=== PATIENT | male | born 1985 ===

== ENCOUNTER 2017-12-26 22:15 | Emergency (ER) | payer BC ==
[2017-12-26] MEDS ORDERED: Rocuronium 50 MG/5 ML Vial IV ONE (22:16)
[2017-12-26] MEDS ORDERED: Naloxone 2 MG/2 ML Syringe IVPUSH ONE ×3 (22:21→22:37)
[2017-12-26] MEDS: Sodium Chloride 0.9% 1,000 ML IV ONE ×2 (22:27→22:53)
[2017-12-26 22:45] LABS: O2 DELIVERY DEVICE ROOM AIR
[2017-12-26 22:47] LABS: CHLORIDE,CL 112 mmol/L (101-111); SODIUM,NA 143 mmol/L (135-145)
--- NOTE | 2017-12-26 23:10 | PCM.SN ---
- Free Text/Narrative Note: Intubation. Called per ER provider to intubate obtunded Pt. Pt with blood alcohol in 480's. Minimal response to painful stimuli. HR 90's, BP 160's / 90' s. RR 30's with SaO2 in the low 90's. Pt relaxed with 80 mg of anectine while cricoid pressure maintained. Glidescope used, copious clear secretions suctioned. 7.5 ETT passed through cords after 2nd attempt, BBS, pos fogging and Pos ETCO2 color change. Tube secured at 23 cm at lip. OG placed with approx 300 cc yellow colored liquids returned. C xray confirms placement. Pt given 40 mg of Zemuron. Vital signs remain unchenged. Procedure time 2240 to 2315
[2017-12-26] MEDS ORDERED: fentaNYL 100 MCG/2 ML SDV IVPUSH ONE (23:24)
[2017-12-26] MEDS ORDERED: Midazolam 1 MG/ML 2 ML SDV ONE (23:25)
[2017-12-26] MEDS ORDERED: Midazolam 1 MG/ML 2 ML SDV IVPUSH ONE (23:25)
[2017-12-26] MEDS ORDERED: fentaNYL 100 MCG/2 ML SDV ONE (23:27)
[2017-12-26 23:44] LABS: BASE EXCESS ARTERIAL -7 mmol/L ((-2)-(+3)); O2 SATURATION ARTERIAL 93 % (95-100); PCO2 ARTERIAL 48 mmHg (35-45); PO2 ARTERIAL 73 mmHg (70-100)
[2017-12-27] MEDS ORDERED: Midazolam 1 MG/ML 2 ML SDV IVPUSH ONE (00:08)
[2017-12-27] MEDS ORDERED: fentaNYL 100 MCG/2 ML SDV ONE (00:09)
[2017-12-27] MEDS ORDERED: Midazolam 1 MG/ML 2 ML SDV ONE (00:09)
[2017-12-27] MEDS ORDERED: Rocuronium 50 MG/5 ML Vial IVPUSH ONE (00:15)
[2017-12-27] MEDS ORDERED: MVI, Adult with Vitamin K 10 ML, Folic Acid 1 MG, Thiamine 100 MG in Lactated Ringers 1... IV ONE ×4 (00:30)
--- NOTE | 2017-12-27 01:23 | EDM.PDOC ---
ED HPI GENERAL MEDICAL PROBLEM - General Chief Complaint: Drug or Alcohol Abuse Stated Complaint: UNRESPONSIVE Time Seen by Provider: 12/26/17 22:22 Source of Information: Reports: EMS History Limitations: Reports: Altered Mental Status - History of Present Illness INITIAL COMMENTS - FREE TEXT/NARRATIVE: ED via [facility] unresponsive. Reported to have had 2 shots of whiskey served at bar then fell asleep at table, unable to arouse. Nasal airway per EMS. Spontaneous respirations. No signs of trauma. 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 - Related Data Allergies Allergy/AdvReac Type Severity Reaction Status Date / Time Unable to Assess Allergy Unverified 12/26/17 22:22 Home Meds: Home Meds . [Unable to Verify Home Med List] 12/26/17 [History] Social & Family History - Family History Family Medical History: Noncontributory - Tobacco Use Smoking Status *Q: Unknown Ever Smoked - Alcohol Use Date of Last Drink: 12/26/17 ED ROS GENERAL - Review of Systems Review Of Systems: ROS reveals no pertinent complaints other than HPI. - Physical Exam Exam: See Below Exam Limited By: Altered Mental Status General Appearance: Obtunded Eye Exam: Bilateral Eye: PERRL (sluggish 4) Ears: Normal External Exam Nose: Normal Inspection Throat/Mouth: Normal Inspection Head Exam: Atraumatic, Normocephalic Neck: Normal Inspection Respiratory/Chest: Other (shallow) Cardiovascular: Regular Rate, Rhythm GI/Abdominal: Normal Bowel Sounds (Male) Exam: Normal Inspection Neuro Exam (Abbreviated): Unresponsive (to painful stimuli), Other (flaccid, no posturing. ) Back Exam: Normal Inspection Extremities: Normal Inspection (no bruising) Skin Exam: Warm, Dry, Intact, Normal Color, Tattoo(s) Course - Vital Signs Last Recorded V/S: Last Vital Signs Temp 97.2 F 12/26/17 22:31 Pulse 93 12/26/17 22:31 Resp 25 H 12/26/17 22:31 BP 131/83 12/26/17 22:31 Pulse Ox 91 L 12/26/17 22:31 - Orders/Labs/Meds Labs: Laboratory Tests 12/26/17 12/26/17 12/26/17 Range/Units 22:15 22:15 22:18 WBC 9.1 (5.0-10.0) 10^3/uL RBC 5.26 (4.6-6.2) 10^6/uL Hgb 17.2 (14.0-18.0) g/dL Hct 50.5 (40.0-54.0) % MCV 96.0 (80-100) fL MCH 32.7 (27.0-34.0) pg MCHC 34.1 (33.0-35.0) g/dL Plt Count 211 (150-450) 10^3/uL Neut % (Auto) 42.1 L (42.2-75.2) % Lymph % (Auto) 47.4 (20.5-50.1) % [place] % (Auto) 7.3 (2-8) % Eos % (Auto) 2.6 (1.0-3.0) % Baso % (Auto) 0.6 (0.0-1.0) % ABG pH (7.35-7.45) ABG pCO2 (35-45) mmHg ABG pO2 (70-100) mmHg ABG HCO3 (22-26) mmol/L ABG O2 Saturation (95-100) % ABG Base Excess ((-2)-(+3)) mmol/L O2 Delivery Device Sodium 143 (135-145) mmol/L Potassium 3.8 (3.6-5.0) mmol/L Chloride 112 H (101-111) mmol/L Carbon Dioxide 19.0 L (21.0-31.0) mmol/L Anion Gap 15.8 BUN 12 (7-18) mg/dL Creatinine 0.9 (0.6-1.3) mg/dL Est Cr Clr Drug Dosing 110.10 mL/min Estimated GFR (MDRD) > 60 BUN/Creatinine Ratio 13.33 Glucose 112 H (74-105) mg/dL POC Glucose 99 (70-105) mg/dl Calcium 8.9 (8.4-10.2) mg/dl Total Bilirubin 0.4 (0.2-1.0) mg/dL AST 28 (10-42) IU/L ALT 19 (10-60) IU/L Alkaline Phosphatase 55 (42-121) IU/L Total Protein 7.5 (6.7-8.2) g/dl Albumin 4.4 (3.2-5.5) g/dl Globulin 3.1 Albumin/Globulin Ratio 1.42 Amylase 82 (28-100) U/L Lipase 30 (22-51) U/L Urine Color (YELLOW) Urine Appearance (CLEAR) Urine pH (5.0-9.0) Ur Specific [place] (1.005-1.030) Urine Protein (NEGATIVE) Urine Glucose (UA) (NEGATIVE) Urine Ketones (NEGATIVE) Urine Occult Blood (NEGATIVE) Urine Nitrite (NEGATIVE) Urine Bilirubin (NEGATIVE) Urine Urobilinogen (0.2-1.0) mg/dL Ur Leukocyte Esterase (NEGATIVE) Urine RBC /HPF Urine WBC (0-5/HPF) /HPF Ur Epithelial Cells /HPF Urine Bacteria (0-FEW/HPF) /HPF Urine Opiates Screen (NEGATIVE) Ur Oxycodone Screen (NEGATIVE) Urine Methadone Screen (NEGATIVE) Ur Barbiturates Screen (NEGATIVE) U Tricyclic Antidepress (NEGATIVE) Ur Phencyclidine Scrn (NEGATIVE) Ur Amphetamine Screen (NEGATIVE) U Methamphetamines Scrn (NEGATIVE) Urine MDMA Screen (NEGATIVE) U Benzodiazepines Scrn (NEGATIVE) Urine Cocaine Screen (NEGATIVE) U Marijuana (THC) Screen (NEGATIVE) Ethyl Alcohol 480 mg/dL 12/26/17 12/26/17 12/26/17 Range/Units 22:30 22:30 22:30 WBC (5.0-10.0) 10^3/uL RBC (4.6-6.2) 10^6/uL Hgb (14.0-18.0) g/dL Hct (40.0-54.0) % MCV (80-100) fL MCH (27.0-34.0) pg MCHC (33.0-35.0) g/dL Plt Count (150-450) 10^3/uL Neut % (Auto) (42.2-75.2) % Lymph % (Auto) (20.5-50.1) % [place] % (Auto) (2-8) % Eos % (Auto) (1.0-3.0) % Baso % (Auto) (0.0-1.0) % ABG pH 7.24 L (7.35-7.45) ABG pCO2 48 H (35-45) mmHg ABG pO2 73 (70-100) mmHg ABG HCO3 20.0 L (22-26) mmol/L ABG O2 Saturation 93 L (95-100) % ABG Base Excess -7 L ((-2)-(+3)) mmol/L O2 Delivery Device Room air Sodium (135-145) mmol/L Potassium (3.6-5.0) mmol/L Chloride (101-111) mmol/L Carbon Dioxide (21.0-31.0) mmol/L Anion Gap BUN (7-18) mg/dL Creatinine (0.6-1.3) mg/dL Est Cr Clr Drug Dosing mL/min Estimated GFR (MDRD) BUN/Creatinine Ratio Glucose (74-105) mg/dL POC Glucose (70-105) mg/dl Calcium (8.4-10.2) mg/dl Total Bilirubin (0.2-1.0) mg/dL AST (10-42) IU/L ALT (10-60) IU/L Alkaline Phosphatase (42-121) IU/L Total Protein (6.7-8.2) g/dl Albumin (3.2-5.5) g/dl Globulin Albumin/Globulin Ratio Amylase (28-100) U/L Lipase (22-51) U/L Urine Color Light yellow (YELLOW) Urine Appearance Slightly cloudy (CLEAR) Urine pH 5.0 (5.0-9.0) Ur Specific [place] <= 1.005 (1.005-1.030) Urine Protein Negative (NEGATIVE) Urine Glucose (UA) Negative (NEGATIVE) Urine Ketones Negative (NEGATIVE) Urine Occult Blood Negative (NEGATIVE) Urine Nitrite Negative (NEGATIVE) Urine Bilirubin Negative (NEGATIVE) Urine Urobilinogen 0.2 (0.2-1.0) mg/dL Ur Leukocyte Esterase Negative (NEGATIVE) Urine RBC Not seen /HPF Urine WBC Not seen (0-5/HPF) /HPF Ur Epithelial Cells Occasional /HPF Urine Bacteria Rare (0-FEW/HPF) /HPF Urine Opiates Screen Negative (NEGATIVE) Ur Oxycodone Screen Negative (NEGATIVE) Urine Methadone Screen Negative (NEGATIVE) Ur Barbiturates Screen Negative (NEGATIVE) U Tricyclic Antidepress Negative (NEGATIVE) Ur Phencyclidine Scrn Negative (NEGATIVE) Ur Amphetamine Screen Negative (NEGATIVE) U Methamphetamines Scrn Negative (NEGATIVE) Urine MDMA Screen Negative (NEGATIVE) U Benzodiazepines Scrn Negative (NEGATIVE) Urine Cocaine Screen Negative (NEGATIVE) U Marijuana (THC) Screen Negative (NEGATIVE) Ethyl Alcohol mg/dL 12/27/17 12/27/17 Range/Units 00:07 00:20 WBC (5.0-10.0) 10^3/uL RBC (4.6-6.2) 10^6/uL Hgb (14.0-18.0) g/dL Hct (40.0-54.0) % MCV (80-100) fL MCH (27.0-34.0) pg MCHC (33.0-35.0) g/dL Plt Count (150-450) 10^3/uL Neut % (Auto) (42.2-75.2) % Lymph % (Auto) (20.5-50.1) % [place] % (Auto) (2-8) % Eos % (Auto) (1.0-3.0) % Baso % (Auto) (0.0-1.0) % ABG pH (7.35-7.45) ABG pCO2 (35-45) mmHg ABG pO2 (70-100) mmHg ABG HCO3 (22-26) mmol/L ABG O2 Saturation (95-100) % ABG Base Excess ((-2)-(+3)) mmol/L O2 Delivery Device Sodium (135-145) mmol/L Potassium (3.6-5.0) mmol/L Chloride (101-111) mmol/L Carbon Dioxide (21.0-31.0) mmol/L Anion Gap BUN (7-18) mg/dL Creatinine (0.6-1.3) mg/dL Est Cr Clr Drug Dosing mL/min Estimated GFR (MDRD) BUN/Creatinine Ratio Glucose (74-105) mg/dL POC Glucose 95 (70-105) mg/dl Calcium (8.4-10.2) mg/dl Total Bilirubin (0.2-1.0) mg/dL AST (10-42) IU/L ALT (10-60) IU/L Alkaline Phosphatase (42-121) IU/L Total Protein (6.7-8.2) g/dl Albumin (3.2-5.5) g/dl Globulin Albumin/Globulin Ratio Amylase (28-100) U/L Lipase (22-51) U/L Urine Color (YELLOW) Urine Appearance (CLEAR) Urine pH (5.0-9.0) Ur Specific [place] (1.005-1.030) Urine Protein (NEGATIVE) Urine Glucose (UA) (NEGATIVE) Urine Ketones (NEGATIVE) Urine Occult Blood (NEGATIVE) Urine Nitrite (NEGATIVE) Urine Bilirubin (NEGATIVE) Urine Urobilinogen (0.2-1.0) mg/dL Ur Leukocyte Esterase (NEGATIVE) Urine RBC /HPF Urine WBC (0-5/HPF) /HPF Ur Epithelial Cells /HPF Urine Bacteria (0-FEW/HPF) /HPF Urine Opiates Screen (NEGATIVE) Ur Oxycodone Screen (NEGATIVE) Urine Methadone Screen (NEGATIVE) Ur Barbiturates Screen (NEGATIVE) U Tricyclic Antidepress (NEGATIVE) Ur Phencyclidine Scrn (NEGATIVE) Ur Amphetamine Screen (NEGATIVE) U Methamphetamines Scrn (NEGATIVE) Urine MDMA Screen (NEGATIVE) U Benzodiazepines Scrn (NEGATIVE) Urine Cocaine Screen (NEGATIVE) U Marijuana (THC) Screen (NEGATIVE) Ethyl Alcohol 422 mg/dL Meds: Medications Discontinued Medications Generic Name Dose Route Start Last Admin Trade Name Gareth PRN Reason Stop Dose Admin Fentanyl 100 mcg 12/26/17 23:24 12/26/17 23:29 Sublimaze IVPUSH 12/26/17 23:25 100 mcg ONETIME ONE Administration Fentanyl Confirm 12/26/17 23:27 12/26/17 23:54 Sublimaze Administered 12/26/17 23:28 Not Given Dose 100 mcg .ROUTE .STK-MED ONE Fentanyl Confirm 12/27/17 00:09 12/27/17 00:25 Sublimaze Administered 12/27/17 00:10 100 mcg Dose Administration 100 mcg .ROUTE .STK-MED ONE Sodium Chloride 1,000 mls @ 999 mls/hr 12/26/17 22:25 12/26/17 22:53 Normal Saline IV 12/26/17 23:25 999 mls/hr .BOLUS ONE Administration Multivitamins/Minerals 10 ml/ 1,011.2 mls @ 999 mls/hr 12/27/17 00:30 00:52 Folic Acid 1 mg/ Thiamine HCl IV 12/27/17 01:30 999 mls/hr 100 mg/ Lactated Ringer's ONETIME ONE Administration Midazolam HCl 2 mg 12/26/17 23:25 12/26/17 23:30 Versed 1 Mg/Ml IVPUSH 12/26/17 23:26 2 mg ONETIME ONE Administration Midazolam HCl Confirm 12/26/17 23:25 12/26/17 23:54 Versed 1 Mg/Ml Administered 12/26/17 23:26 Not Given Dose 2 mg .ROUTE .STK-MED ONE Midazolam HCl 2 mg 12/27/17 00:08 12/27/17 00:37 Versed 1 Mg/Ml IVPUSH 12/27/17 00:09 Not Given ONETIME ONE Midazolam HCl Confirm 12/27/17 00:09 12/27/17 00:20 Versed 1 Mg/Ml Administered 12/27/17 00:10 2 mg Dose Administration 2 mg .ROUTE .STK-MED ONE Naloxone HCl 0.1 mg 12/26/17 22:21 12/26/17 22:26 Narcan IVPUSH 12/26/17 22:22 Not Given ONETIME ONE Naloxone HCl 2 mg 12/26/17 22:21 12/26/17 22:27 Narcan IVPUSH 12/26/17 22:22 2 mg ONETIME ONE Administration Naloxone HCl 1 mg 12/26/17 22:37 12/26/17 22:40 Narcan IVPUSH 12/26/17 22:38 1 mg ONETIME ONE Administration Rocuronium [place] 40 mg 12/26/17 22:16 Zemuron IV 12/26/17 22:17 .STK-MED ONE - Re-Assessments/Exams Free Text/Narrative Re-Assessment/Exam: Patient obtunded on arrival, airway patent, tolerating nasal. Minimal response to iv placement or gaytan catheter. Patient intubated by [facility]. 7.5 ET. Placement confirmed. ETOH, 480 , No signs of trauma, CT head negative, Urine drug screen negative. [facility] accepting of patient in transfer. Tx via [employer] fixed wing as [place] unable to fly due to weather, Patient vitals stable, Spontaneous shallow respiration with bag assist. Additional Cesar 20mg IVP given at 0015. Departure - Departure Time of Disposition: 01:20 Disposition: DC/Tfer to Acute Hospital 02 Clinical Impression: Alcohol abuse, Respiratory depression Alcohol poisoning Qualifiers: Encounter type: initial encounter Injury intent: undetermined intent Qualified Code(s): T51.94XA - Toxic effect of unspecified alcohol, undetermined, initial encounter - Discharge Information Referrals: PCP,Unobtain [Primary Care Provider] - Forms: ED Department Discharge
== END 2017-12-27 01:10 ==
LOC: DL.ED 22:15
DX: T51.94XA Toxic effect of unspecified alcohol, undetermined, initial encounter (principal); F10.10 Alcohol abuse, uncomplicated; R06.89 Other abnormalities of breathing
CPT/HCPCS: 31500; 36415; 36600; 70450; 71045; 80053; 80305; 81001; 82150; 82803; 82962; 83690; 85025; 96361; 96365; 96374; 96375; 96376; 99285; G0480; J2250; J2310; J3010; J3411; J7030; J7120; J3490